=== PATIENT | female | born 1975 | race Two or more races ===

== ENCOUNTER 2019-02-03 01:25 | Emergency (ER) | payer OTHER ==
[~2019-02-03] VITALS: Ht 154.9 cm; Wt 64.9 kg
[2019-02-03 01:31] VITALS: Ht 154.9 cm; Wt 64.9 kg
[2019-02-03 03:03] LABS: BASOPHIL % 0.2 % (0-2); PLATELET COUNT 224 x10^3mcL (130-400); RED CELL DISTRIBUTION WIDTH 13.7 % (11.5-14.5)
[2019-02-03 03:13] LABS: CALCIUM 8.4 mg/dL (8.5-10.1); CARBON DIOXIDE 27.4 mmol/L (21-32); CHLORIDE SERUM 104 mmol/L (98-107); CREATININE SERUM 0.7 mg/dL (0.6-1.0); GFR1 > 60 mL/min; GLUCOSE SERUM 112 mg/dL (74-106); POTASSIUM SERUM 4.2 mmol/L (3.5-5.1); SODIUM SERUM 138 mmol/L (136-145)
[2019-02-03 03:18] LABS: ALKALINE PHOSPHATASE 119 U/L (46-116); ALT/SGPT 147 U/L (14-59); AST/SGOT 47 U/L (15-37); BILIRUBIN TOTAL 1.2 mg/dL (0.20-1.00); LIPASE 112 IU/L (73-393); TOTAL PROTEIN, SERUM 6.4 g/dL (6.4-8.2)
[2019-02-03 03:31] LABS: ALBUMIN 3.3 g/dL (3.4-5.0)
[2019-02-03 05:52] LABS: UA SPECIFIC GRAVITY >=1.030 (1.005-1.035); microscopic required? YES; urine erythrocyte NEGATIVE (NEGATIVE)
[2019-02-03 06:38] VITALS: BP 96/57
== END 2019-02-03 06:38 | disposition home or self-care (01) ==
LOC: ED 01:25
PROVIDERS: Emergency Medicine
DX: R11.10 Vomiting, unspecified (principal); R19.7 Diarrhea, unspecified; R10.9 Unspecified abdominal pain; Z98.890 Other specified postprocedural states
CPT/HCPCS: J1885; J2270; J2405

== ENCOUNTER 2020-04-12 11:46 | Emergency (ER) | payer OTHER ==
[~2020-04-12] VITALS: Ht 154.9 cm; Wt 67.1 kg
[2020-04-12 12:12] VITALS: BP 112/75; Ht 154.9 cm; Wt 67.1 kg
== END 2020-04-12 13:09 | disposition home or self-care (01) ==
LOC: ED 11:46
DX: S09.90XA Unspecified injury of head, initial encounter (principal); Z98.890 Other specified postprocedural states; W18.09XA Striking against other object with subsequent fall, initial encounter; Y93.89 Activity, other specified; Y92.89 Other specified places as the place of occurrence of the external cause; Y99.8 Other external cause status